=== PATIENT | female | born 1995 | race Two or more races ===

== ENCOUNTER 2021-11-07 03:07 | Emergency (ER) | payer MEDICAID, SELFPAY ==
--- NOTE | ~2021-11-07 | US_ITS ---
EXAMINATION: US PELVIS CLINICAL INFORMATION: Question of ovarian torsion COMPARISON: CT abdomen pelvis 11/07/2021 TECHNIQUE: Ultrasound of the pelvis is performed using both transabdominal and transvaginal transducers along with Doppler. Transvaginal imaging is performed due to inadequate visualization transabdominally. FINDINGS: Uterus: The uterus is anteverted and measures 8.1 x 4.2 x 4.2 cm. A lower uterine segment 1.3 cm fibroid is noted on the right. The double wall endometrial thickness is 0.2 mm. The uterus is smooth in contour and has normal myometrial echogenicity. Adnexa: Both ovaries are visualized. There is normal color flow to the adnexa. There is no ovarian torsion. There is no pelvic ascites or fluid collection. Right ovary measures 2.5 x 1.7 x 3.2 cm for a volume of 7.1 mL and appears normal Left ovary measures 5.4 x 4.7 x 4.8 cm for a volume of 66 mL which includes a complex appearing 3.8 x 2.9 x 3.1 cm cyst with a septation and echogenic material within. Some complex fluid is seen in the cul-de-sac which may represent blood. US/US pelvic ovarian doppler IMPRESSION: Complex appearing 3.8 cm left ovarian cyst with some blood in the cul-de-sac. No evidence of ovarian torsion. Incidentally noted small fibroid lower uterine segment on the right.
--- NOTE | ~2021-11-07 | US_ITS ---
EXAMINATION: US PELVIS CLINICAL INFORMATION: Question of ovarian torsion COMPARISON: CT abdomen pelvis 11/07/2021 TECHNIQUE: Ultrasound of the pelvis is performed using both transabdominal and transvaginal transducers along with Doppler. Transvaginal imaging is performed due to inadequate visualization transabdominally. FINDINGS: Uterus: The uterus is anteverted and measures 8.1 x 4.2 x 4.2 cm. A lower uterine segment 1.3 cm fibroid is noted on the right. The double wall endometrial thickness is 0.2 mm. The uterus is smooth in contour and has normal myometrial echogenicity. Adnexa: Both ovaries are visualized. There is normal color flow to the adnexa. There is no ovarian torsion. There is no pelvic ascites or fluid collection. Right ovary measures 2.5 x 1.7 x 3.2 cm for a volume of 7.1 mL and appears normal Left ovary measures 5.4 x 4.7 x 4.8 cm for a volume of 66 mL which includes a complex appearing 3.8 x 2.9 x 3.1 cm cyst with a septation and echogenic material within. Some complex fluid is seen in the cul-de-sac which may represent blood. US/US pelvic and transvaginal IMPRESSION: Complex appearing 3.8 cm left ovarian cyst with some blood in the cul-de-sac. No evidence of ovarian torsion. Incidentally noted small fibroid lower uterine segment on the right.
--- NOTE | ~2021-11-07 | CT_ITS ---
EXAMINATION: CT ABDOMEN AND PELVIS WITH CONTRAST CLINICAL INFORMATION: Lower abdominal tenderness and vomiting. COMPARISON: None TECHNIQUE: Multidetector volumetric images were obtained from the superior aspect of the liver through the pubic symphysis following administration 85 mL of Omnipaque 350 intravenous contrast. Sagittal and coronal reformatted images were obtained on the technologist's workstation. Oral contrast: No This CT examination was performed using dose optimization techniques as appropriate, variously including the following: *Automated exposure control *Adjustment of mA and/or kV according to patient size (this includes techniques or standardized protocols for targeted exams where dose is matched to indication/reason for exam; i.e. extremities or head) *Use of iterative reconstruction technique DLP: 329 mGy-cm FINDINGS: Limited by paucity of intra-abdominal fat and by lack of contrast. LUNG BASES: The lung bases appear clear, with no evidence of inflammation or nodules. LIVER, GALLBLADDER, AND BILIARY TREE: The liver appears unremarkable in size, shape, and attenuation. No focal hepatic lesion or biliary ductal dilatation is appreciated. Unremarkable appearance of the gallbladder. PANCREAS: Unremarkable SPLEEN: Unremarkable ADRENAL GLANDS: Unremarkable KIDNEYS AND URETERS: The kidneys appear unremarkable in size, shape, and attenuation. No hydronephrosis, hydroureter, or calculi seen. BLADDER: Unremarkable GASTROINTESTINAL TRACT: The small and large bowel appear unremarkable. No diverticulosis. Normal-appearing distal ileum and vermiform appendix. ABDOMINAL WALL: No significant hernia is appreciated. LYMPH NODES: No evidence of adenopathy by size criteria. VASCULAR: Unremarkable PELVIC VISCERA/PERITONEAL CAVITY: Right ovary measures approximately 3.6 x 3.5 x 3.4 cm. Left ovary measures approximately 4.5 x 4.1 x 3.4 cm, and contains a central cystic structure measuring 3.2 x 2.9 x 2.7 cm. Findings suggest contrast enhancement of both ovaries. Small amount of free pelvic fluid, predominantly anteriorly. OSSEOUS STRUCTURES: Unremarkable CT/CT abdomen pelvis w IV con IMPRESSION: Right ovary measures approximately 3.6 x 3.5 x 3.4 cm. Left ovary measures approximately 4.5 x 4.1 x 3.4 cm, and contains a central cystic structure measuring 3.2 x 2.9 x 2.7 cm. Findings suggest contrast enhancement of both ovaries. Small amount of free pelvic fluid, predominantly anteriorly. The findings are felt more likely to represent a prominent left ovarian follicle rather than torsion. Recommend clinical correlation.
[2021-11-07 03:27] VITALS: BP 116/68; PULSE 89; RESP 18; TEMP 36.5; O2SAT 98; BMI 19.6
[2021-11-07 05:03] LABS: Basophils Absolute Auto 0.1 X10*3/uL (0.0-0.2); Basophils Percent Auto 0.4 % (0-2); Eosinophils Absolute Auto 0.1 X10*3/uL (0.0-0.4); Eosinophils Percent Auto 0.5 % (0-4); Hematocrit 37.3 % (37.0-47.0); Hemoglobin 12.7 g/dl (12.0-16.0); Imm Gran Abs Auto 0.04 X10*3/uL (0.00-0.03); Imm Gran Pct Auto 0.3 % (0.0-0.4); Lymphocytes Percent Auto 14.7 % (20-40); MANUAL DIFF FLAG NO; Mean Corpuscular Hemoglobin 31.8 pg (27.0-33.0); Mean Corpuscular Volume 93.3 fL (80.0-98.0); Mean Platelet Volume 10.6 fL (9.4-12.3); Monocytes Percent Auto 7.3 % (2-11); Neutrophils Absolute Auto 10.6 x10*3/uL (2.0-8.3); Neutrophils Percent Auto 76.8 % (45-73); Platelet Count 183 X10*3/uL (160-400); Red Cell Distribution Width 12.2 % (11.0-16.0); White Blood Count 13.8 X10*3/uL (4.8-10.8)
[2021-11-07 05:16] LABS: Appearance Urine Clear; Color Urine Yellow; Glucose Urine UA Negative (Negative); Leukocyte Esterase Urine Negative (Negative); Nitrite Urine Negative (Negative); PH 5.5 (5.0-9.0); Urine Blood Negative (Negative); Urine Ketones 15 mg/dL (Negative); Urine Protein Negative (Neg-Trace)
[2021-11-07 05:22] LABS: Alanine Aminotransferase 11 U/L (0-31); Albumin Level 4.5 g/dL (3.5-5.0); Alkaline Phosphatase 39 U/L (39-117); Anion Gap 16 (12-20); Aspartate Amino Transferase 13 U/L (5-31); Bilirubin Total 0.7 mg/dL (0.0-1.0); Blood Urea Nitrogen 11 mg/dL (9-16); Calcium 9.9 mg/dL (8.4-10.2); Carbon Dioxide 25 mmol/L (22-29); Chloride 103 mmol/L (96-108); Creatinine Clr Calc Pharmacy 108.8; Estimated Glomerular Filt Rate > 60; Glucose Random 98 mg/dL (60-115); Potassium 4.1 mmol/L (3.3-5.1); Sodium 140 mmol/L (135-145); Total Protein 7.1 g/dL (6.5-8.0)
--- NOTE | 2021-11-07 08:23 | ED.ABDPAIN ---
HPI - Abdominal Pain General Chief Complaint: Abdominal Pain Stated Complaint: Stomach Pain Time Seen by Provider: 11/07/21 08:08 Source: patient Mode of arrival: ambulatory Limitations: no limitations History of Present Illness HPI narrative: Patient presents emergency department for evaluation of abdominal pain. Onset was 3 days ago. She thought this was related to constipation as she has not had a bowel movement in the past 3 days. Has tried MiraLax without significant improvement. Abdominal pain is located predominantly diffusely across the lower abdomen. Is described as aching. Denies any aggravating or alleviating factors. Certainly able to tolerate p.o. intake. Has associated nausea, way of 2 episodes of vomiting having occurred yesterday. Denies fevers, chills, chest pain, palpitations, shortness of breath, difficulty breathing, dysuria urinary frequency/urgency/frequency, pelvic pain, abnormal vaginal discharge. Denies possibility of , last menstrual period being 10 days ago. Related Data Previous Rx's Medication Instructions Recorded simethicone 125 mg capsule 125 mg PO DAILY PRN abdominal 11/07/21 distention #14 caps Allergies Allergy/AdvReac Type Severity Reaction Status Date / Time No Known Allergies Allergy Verified 11/07/21 04:53 Review of Systems Review of Systems Constitutional : No Weight loss, No Fever, No Chills ENT/Mouth :? No sore throat, No Rhinorrhea Eyes: No Swelling, No Redness Cardiovascular : No Chest Pain, No SOB, No Edema Respiratory : No Cough, No Sputum, No Wheezing Gastrointestinal : Positive Nausea, Positive Vomiting, positive constipation, no Diarrhea, positive abdominal pain, No Hematochezia, No Melena Genitourinary : No Dysuria, No Urinary Frequency, No Hematuria, No Urgency? Musculoskeletal : No joint pain, No Myalgias, No Joint Swelling Skin : No Skin Lesions, No rash Neuro : No Weakness, No Numbness, No Dizziness, No Headache Psych : No Anxiety/Panic, No Depression Heme/Lymph: No Bruising, No Lymphadenopathy Endocrine : No Polyuria, No Polydipsia Yes all other systems are reviewed and are negative [facility] Past Medical History Attestation statement: The following information was validated with the patient. Source: old records reviewed Social History Social History Alcohol intake: never Patient Tobacco Use Status: Never used Tobacco Physical Exam ED Vital Signs: Vital Signs - 24 hr 11/07/21 03:27 11/07/21 08:37 11/07/21 09:34 Temperature 97.7 F 98.1 F Pulse Rate 89 112 H 93 Respiratory Rate 18 22 H 14 Blood Pressure 116/68 121/72 104/49 L Pulse Oximetry 98 100 100 Oxygen Delivery Method Room Air Room Air Room Air 11/07/21 14:56 Temperature 98.4 F Pulse Rate 89 Respiratory Rate 16 Blood Pressure 98/52 L Pulse Oximetry 100 Oxygen Delivery Method Room Air BMI result Body Mass Index 19.6 Appearance: Alert.?Oriented to person, place and time. No acute distress.?Normal affect. Eyes: Pupils equal, round and reactive to light.? ENT: Pharynx normal.?? Neck: Normal inspection.? Neck supple.?? CVS: Heart sounds normal. Normal heart rate and rhythm.? Pulses normal.?? Respiratory: No respiratory distress.? Lung sounds clear to auscultation bilaterally?? Abdomen: Soft with diffuse lower abdominal tenderness. Negative Rovsing sign, negative obturator's sign, negative psoas sign. No rigidity. No guarding. hypooactive bowel sounds. Skin: Skin warm and dry.? Normal skin color.? Extremities: No lower extremity edema.? Neuro: Moves all extremities spontaneously. Sensation intact bilaterally. No motor deficits Ambulates with normal steady gait. Course Course Course Narrative: Patient is a 26-year-old female with past medical history of constipation who presents to the emergency department for evaluation of abdominal pain. She is overall well appearing, vital signs are stable, afebrile without tachycardia or hypoxia. Abdominal exam significant for diffuse lower abdominal tenderness. Will obtain CBC to evaluate for leukocytosis/ anemia, CMP and lipase to evaluate for abnormal electrolytes /abnormal renal function/ abnormal hepatic/biliary function, CT of the abdomen and pelvis to exclude was intra-abdominal pathology, and Urinalysis. Reevaluation(s) Reevaluation #1: CBC reveals a mild leukocytosis at 13.8. CMP is unremarkable. Urinalysis without evidence of infection or microscopic hematuria. CT reveals left ovary with central cystic structure and small amount of free pelvic fluid which may represent a prominent left ovarian follicle rather than torsion. Given size of cyst, less likelihood for ovarian torsion however will obtain pelvic Doppler ultrasound for further evaluation. Spoke with information systems security specialist Dr. Becerra, who will come to examine the patient in the emergency department. Time: 10:53 Reevaluation #2: Patient underwent gynecological examination with Dr. Becerra, without any acute abnormal findings from his standpoint. Chlamydia, gonorrhea, bacterial vaginosis panel, trichomoniasis testing obtained. Likely will require outpatient follow-up regarding ovarian cyst, awaiting ultrasound at this time. Time: 11:16 Reevaluation #3: Trichomonas prep is negative, no yeast seen. Chlamydia and gonorrhea testing are negative. Ultrasound reveals complex left ovarian cyst with some blood in the cul-de-sac, no evidence of torsion. Discussed all findings exam with patient. Advised outpatient follow-up with Gynecology regarding the cyst. Additionally advised to contact her primary care provider for further follow-up regarding her abdominal pain within the next 3 days. Patient reporting that the pain feels as though she needs to express gas but is unable to, advised treatment with simethicone. Reviewed worsening signs and symptoms return back to emergency department for. All questions were answered, patient was discharged home in stable condition. Time: 14:34 MDM - Abdominal Pain Medical Records Attestation: I reviewed the patient's medical records. Lab Data Attestation: I reviewed the patient's lab results. Result diagrams: 11/07/21 04:56 11/07/21 04:56 Labs: Lab Results 11/07/21 11/07/21 11/07/21 Range/Units 04:56 04:56 05:08 WBC 13.8 H (4.8-10.8) X10*3/uL RBC 4.00 L (4.20-5.50) X10*6/uL Hgb 12.7 (12.0-16.0) g/dl Hct 37.3 (37.0-47.0) % MCV 93.3 (80.0-98.0) fL MCH 31.8 (27.0-33.0) pg MCHC 34.0 (31.0-35.0) g/dl RDW 12.2 (11.0-16.0) % Plt Count 183 (160-400) X10*3/uL MPV 10.6 (9.4-12.3) fL Immature Gran % (Auto) 0.3 (0.0-0.4) % Neut % (Auto) 76.8 H (45-73) % Lymph % (Auto) 14.7 L (20-40) % [place] % (Auto) 7.3 (2-11) % Eos % (Auto) 0.5 (0-4) % Baso % (Auto) 0.4 (0-2) % Lymph # (Auto) 2.0 (1.2-4.9) X10*3/uL [place] # (Auto) 1.0 (0.1-1.2) X10*3/uL Eos # (Auto) 0.1 (0.0-0.4) X10*3/uL Baso # (Auto) 0.1 (0.0-0.2) X10*3/uL Abs Immat Gran (auto) 0.04 H (0.00-0.03) X10*3/uL Absolute Neuts (auto) 10.6 H (2.0-8.3) x10*3/uL Absolute Nucleated RBC 0.000 (0.0-0.012) X10*3/uL Nucleated RBC % (auto) 0.0 (0.0-0.2) /100WBC Sodium 140 (135-145) mmol/L Potassium 4.1 (3.3-5.1) mmol/L Chloride 103 (96-108) mmol/L Carbon Dioxide 25 (22-29) mmol/L Anion Gap 16 (12-20) BUN 11 (9-16) mg/dL Creatinine 0.65 (0.5-1.4) mg/dL Estim Creat Clear Calc 108.8 Estimated GFR > 60 Random Glucose 98 (60-115) mg/dL Calcium 9.9 (8.4-10.2) mg/dL Total Bilirubin 0.7 (0.0-1.0) mg/dL AST 13 (5-31) U/L ALT 11 (0-31) U/L Alkaline Phosphatase 39 (39-117) U/L Total Protein 7.1 (6.5-8.0) g/dL Albumin 4.5 (3.5-5.0) g/dL Lipase 25 (8-78) U/L Beta HCG, Quant < 2 mIU/mL Urine Color Yellow Urine Appearance Clear Urine pH 5.5 (5.0-9.0) Ur Specific [place] 1.010 (1.005-1.025) Urine Protein Negative (Neg-Trace) mg/dL Urine Glucose (UA) Negative (Negative) mg/dL Urine Ketones 15 (Negative) mg/dL Urine Blood Negative (Negative) Urine Nitrite Negative (Negative) Ur Leukocyte Esterase Negative (Negative) Chlam trachomat DNA PCR (Not Detect.) COVID-19 ([facility]) (Negative) COVID-19 Clin Com N.gonorrhoeae DNA (PCR) (Not Detect.) 11/07/21 11/07/21 Range/Units 09:32 11:19 WBC (4.8-10.8) X10*3/uL RBC (4.20-5.50) X10*6/uL Hgb (12.0-16.0) g/dl Hct (37.0-47.0) % MCV (80.0-98.0) fL MCH (27.0-33.0) pg MCHC (31.0-35.0) g/dl RDW (11.0-16.0) % Plt Count (160-400) X10*3/uL MPV (9.4-12.3) fL Immature Gran % (Auto) (0.0-0.4) % Neut % (Auto) (45-73) % Lymph % (Auto) (20-40) % [place] % (Auto) (2-11) % Eos % (Auto) (0-4) % Baso % (Auto) (0-2) % Lymph # (Auto) (1.2-4.9) X10*3/uL [place] # (Auto) (0.1-1.2) X10*3/uL Eos # (Auto) (0.0-0.4) X10*3/uL Baso # (Auto) (0.0-0.2) X10*3/uL Abs Immat Gran (auto) (0.00-0.03) X10*3/uL Absolute Neuts (auto) (2.0-8.3) x10*3/uL Absolute Nucleated RBC (0.0-0.012) X10*3/uL Nucleated RBC % (auto) (0.0-0.2) /100WBC Sodium (135-145) mmol/L Potassium (3.3-5.1) mmol/L Chloride (96-108) mmol/L Carbon Dioxide (22-29) mmol/L Anion Gap (12-20) BUN (9-16) mg/dL Creatinine (0.5-1.4) mg/dL Estim Creat Clear Calc Estimated GFR Random Glucose (60-115) mg/dL Calcium (8.4-10.2) mg/dL Total Bilirubin (0.0-1.0) mg/dL AST (5-31) U/L ALT (0-31) U/L Alkaline Phosphatase (39-117) U/L Total Protein (6.5-8.0) g/dL Albumin (3.5-5.0) g/dL Lipase (8-78) U/L Beta HCG, Quant mIU/mL Urine Color Urine Appearance Urine pH (5.0-9.0) Ur Specific [place] (1.005-1.025) Urine Protein (Neg-Trace) mg/dL Urine Glucose (UA) (Negative) mg/dL Urine Ketones (Negative) mg/dL Urine Blood (Negative) Urine Nitrite (Negative) Ur Leukocyte Esterase (Negative) Chlam trachomat DNA PCR NOT DETECTED (Not Detect.) COVID-19 ([facility]) Negative (Negative) COVID-19 Clin Com See Note N.gonorrhoeae DNA (PCR) NOT DETECTED (Not Detect.) Imaging Data CT scan - abdomen: Radiologist's impression: CT/CT abdomen pelvis w IV con IMPRESSION: ? Right ovary measures approximately 3.6 x 3.5 x 3.4 cm. Left ovary measures approximately 4.5 x 4.1 x 3.4 cm, and contains a central cystic structure measuring 3.2 x 2.9 x 2.7 cm. Findings suggest contrast enhancement of both ovaries. Small amount of free pelvic fluid, predominantly anteriorly. The findings are felt more likely to represent a prominent left ovarian follicle rather than torsion. Recommend clinical correlation. US - abdomen: Radiologist's impression: US/US pelvic ovarian doppler IMPRESSION: Complex appearing 3.8 cm left ovarian cyst with some blood in the cul-de-sac. No evidence of ovarian torsion. Incidentally noted small fibroid lower uterine segment on the right. Discharge Plan Discharge Clinical Impression: Complex ovarian cyst, Abdominal pain Patient Disposition: Home, Self-Care Instructions: Ovarian Cyst (ED), Abdominal Pain (ED) Additional Instructions: You can take ibuprofen 200 mg, 3 tablets (600mg) every 6-8 hours as needed for pain, in addition to Tylenol 500 mg, 2 tablets (1,000mg) every 4-6 hours as needed for pain, but not to exceed 3 doses daily (3,000mg).? Please contact your primary care provider to arrange for a follow-up visit regarding your abdominal pain, within 3 days. Please contact Gynecology for further evaluation and follow-up regarding your left ovarian cyst. Return to the emergency department any new or worsening symptoms or concerns. Prescriptions: New simethicone 125 mg capsule 125 mg PO DAILY PRN (Reason: abdominal distention) Qty: 14 0RF Referrals: Lasha Becerra MD [Physician] - Interventions: ED Discharge Assessment Last Done: 11/07/21 15:39 Discharge Date/Time: 11/07/21 15:39
[2021-11-07 08:37] VITALS: BP 121/72; PULSE 112; RESP 22; TEMP 36.7; O2SAT 100
[2021-11-07] MEDS: 0.9 % Sodium Chloride 1,000 ML 999 ML IV (08:52)
[2021-11-07] MEDS: ondansetron HCL 4 MG/2 ML VIAL IVPUSH (08:53)
[2021-11-07] MEDS: Ketorolac Tromethamine 30 MG/ML VIAL IVPUSH (08:53)
[2021-11-07 08:59] LABS: Lipase 25 U/L (8-78)
[2021-11-07 09:06] LABS: HCG Quantitative < 2 mIU/mL
[2021-11-07] MEDS: iohexoL 350 MG/ML 100 ML INFUS..BTL IV (09:22)
[2021-11-07 09:34] VITALS: BP 104/49; PULSE 93; RESP 14; O2SAT 100
[2021-11-07 10:08] LABS: COVID-19 Test Negative (Negative); IDNOW Serial# 9DB6401D
--- NOTE | 2021-11-07 10:49 | PM.GYNCN ---
[employer] HOME [employer] - CN: HPI Data of Consult Consult date: 11/07/21 Primary Care Provider: Drea Oliva NP Consult Narrative Narrative: I was consulted on Ely Brar who is a 26 year old female who presented to emergency room complaining of abdominal/pelvic pain that started 3 days ago associated with nausea, constipation, no additional GI or symptoms, no vaginal discharge or abnormal vaginal bleeding, the pain is in the bilateral lower pelvis with no radiation, no fever, chills, dysuria urinary frequency/urgency/frequency.? Last menstrual period was 10 days ago. HCG is negative. 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 Review of Systems ROS Unobtainable: All systems reviewed & are unremarkable except as noted in HPI and below Cardiovascular: Denies Palpatations, Loss of consciousness or Chest pain Respiratory: Denies Cough, Wheezing or Shortness of breath Musculoskeletal: Denies Low back pain Gastrointestinal: Denies Heartburn, Constipation, Diarrhea, Nausea or Vomiting Genitourinary: Denies Pain with urination, Burning with urination or Urinary frequency Neurological: Denies Migranes Psychological: Denies Depression OB PMF Social History Social History Alcohol intake: never Patient Tobacco Use Status: Never used Tobacco Smoked in Last 30 Days: No Use of substances other than those prescribed or required for medical reasons: No Advance Directives: No Advance Directives Information Provided: Yes Meds Allergies Allergy/AdvReac Type Severity Reaction Status Date / Time No Known Allergies Allergy Verified 11/07/21 04:53 [employer] HOME [employer]ER Physical Exam Vitals Vital signs: Temp Pulse Resp BP Pulse Ox O2 Del Method 98.1 F 93 14 104/49 L 100 11/07/21 08:37 11/07/21 09:34 11/07/21 09:34 11/07/21 09:34 11/07/21 09:34 11/07/21 09:34 BMI result Body Mass Index 19.6 Constitutional General Appearance: Healthy appearing, Well-nourished and Well-developed Psychiatric Mood and Affect: active and alert, normal mood and normal affect Skin Appearance: No rashes and No lesions Lungs Respiratory Effort: No intercostal retractions Auscultation: Clear to auscultation Cardiovascular Auscultation: RRR Abdomen Auscultation/Inspection/Palpation: Normal bowel sounds, Soft, Non-distended and No tenderness Female Genitalia (Pelvic) Vagina: Nontender, No erythema and Normal discharge Cervix: No cervical motion tenderness Uterus: Normal size and Anteverted Adnexa/Parametria: Adnexal Tenderness: None, Adnexal Mass: None, Parametrial Tenderness: None and Parametrial Mass: None [employer] - Results Labs CBC & Chem 7: 11/07/21 04:56 11/07/21 04:56 Labs: Short CBC 11/07/21 Range/Units 04:56 WBC 13.8 H (4.8-10.8) X10*3/uL Hgb 12.7 (12.0-16.0) g/dl Hct 37.3 (37.0-47.0) % Plt Count 183 (160-400) X10*3/uL BMP 11/07/21 04:56 Sodium 140 Potassium 4.1 Chloride 103 Carbon Dioxide 25 BUN 11 Creatinine 0.65 Calcium 9.9 Liver Function 11/07/21 Range/Units 04:56 Total Bilirubin 0.7 (0.0-1.0) mg/dL AST 13 (5-31) U/L ALT 11 (0-31) U/L Alkaline Phosphatase 39 (39-117) U/L Albumin 4.5 (3.5-5.0) g/dL Urine 11/07/21 Range/Units 05:08 Urine Color Yellow Urine Appearance Clear Urine pH 5.5 (5.0-9.0) Ur Specific [place] 1.010 (1.005-1.025) Urine Protein Negative (Neg-Trace) mg/dL Urine Glucose (UA) Negative (Negative) mg/dL Imaging CT scan - pelvis: Radiologist's impression: ITS Impressions Abdomen/Pelvis CT 11/07/21 09:29 IMPRESSION: Right ovary measures approximately 3.6 x 3.5 x 3.4 cm. Left ovary measures approximately 4.5 x 4.1 x 3.4 cm, and contains a central cystic structure measuring 3.2 x 2.9 x 2.7 cm. Findings suggest contrast enhancement of both ovaries. Small amount of free pelvic fluid, predominantly anteriorly. The findings are felt more likely to represent a prominent left ovarian follicle rather than torsion. Recommend clinical correlation. US - abdomen: Radiologist's impression: ITS Impressions Abdomen/Pelvis CT 11/07/21 09:29 IMPRESSION: Right ovary measures approximately 3.6 x 3.5 x 3.4 cm. Left ovary measures approximately 4.5 x 4.1 x 3.4 cm, and contains a central cystic structure measuring 3.2 x 2.9 x 2.7 cm. Findings suggest contrast enhancement of both ovaries. Small amount of free pelvic fluid, predominantly anteriorly. The findings are felt more likely to represent a prominent left ovarian follicle rather than torsion. Recommend clinical correlation. Doppler Study Ultrasound 11/07/21 12:40 IMPRESSION: Complex appearing 3.8 cm left ovarian cyst with some blood in the cul-de-sac. No evidence of ovarian torsion. Incidentally noted small fibroid lower uterine segment on the right. Pelvic/Transvag US 11/07/21 12:40 IMPRESSION: Complex appearing 3.8 cm left ovarian cyst with some blood in the cul-de-sac. No evidence of ovarian torsion. Incidentally noted small fibroid lower uterine segment on the right. Assessment and Plan (1) Complex ovarian cyst: Status: Acute Discussed the patient the finding on CT scan and pelvic ultrasound, complex 3.8 cm ovarian cyst on the ovary with a complex cul-de-sac possible ruptured ovarian cyst, 1.3 cm uterine myoma. GC and chlamydia, BV panel was Trichomonas collected, hCG is negative. Will follow-up in the office in 2 weeks. Instructions to be given to patient to come back to the emergency room in case of persistent or worsening of her pelvic pain, nausea or vomiting, fever above 100.4 otherwise follow-up in the office in 2 weeks. Case discussed with DELORES Pugh in the emergency room
[2021-11-07 13:34] LABS: CT PCR NOT DETECTED (Not Detect.); NG PCR NOT DETECTED (Not Detect.)
[2021-11-07 14:56] VITALS: BP 98/52; PULSE 89; RESP 16; TEMP 36.9; O2SAT 100
--- NOTE | 2021-11-07 15:40 | PC.NURSE ---
Verbal understanding of discharge by patient and significant other at time of departure.
[2021-11-08 12:20] LABS: BV Int Neg Control Negative (Negative); BV Int Pos Control Positive (Positive)
== END 2021-11-07 15:39 | disposition home or self-care (01) ==
PROVIDERS: Nurse Practitioner Family; Emergency Provider Internal Medicine; PCP Nurse Practitioner Family
DX: R10.30 Lower abdominal pain, unspecified (principal); N83.292 Other ovarian cyst, left side; Z20.822 Contact with and (suspected) exposure to COVID-19
CPT/HCPCS: 36415; 74177; 76830; 76856; 80053; 81003; 83690; 84702; 85025; 87480; 87491; 87510; 87591; 87635; 87660; 93975; 96361; 96374; 96375; 99284; 99285; J1885; J2405; Q9967